=== PATIENT | male | born 1995 | race Caucasian/White ===

== ENCOUNTER 2017-03-10 23:48 | Emergency (ER) | payer OTHER ==
[~2017-03-10] VITALS: Ht 185.4 cm; Wt 77.3 kg
[~2017-03-10 23:48] MED LIST: VYVANSE60 MG PO
[2017-03-10 23:49] VITALS: BP 120/76; PULSE 96
== END 2017-03-11 00:48 | disposition home or self-care (01) ==
LOC: COL.ER 23:48
DX: S61.012A Laceration without foreign body of left thumb without damage to nail, initial encounter (principal); F90.9 Attention-deficit hyperactivity disorder, unspecified type; W25.XXXA Contact with sharp glass, initial encounter; Y92.69 Other specified industrial and construction area as the place of occurrence of the external cause; Y99.0 Civilian activity done for income or pay